=== PATIENT | female | born 1950 | race Caucasian/White ===

== ENCOUNTER → 2024-01-20 11:04 | Outpatient (BNVA) | payer MEDICARE, SELFPAY | PROVIDERS: PCP Clinical Nurse Specialist Adult Health; Visit Provider Nurse Practitioner Family | DX: R39.9 Unspecified symptoms and signs involving the genitourinary system (principal) | CPT/HCPCS: 81000 ==

== ENCOUNTER → 2024-03-10 08:51 | Outpatient (BNVA) | payer MEDICARE, SELFPAY | PROVIDERS: PCP Family Medicine; Visit Provider Family Medicine | DX: Z13.220 Encounter for screening for lipoid disorders (principal); E53.8 Deficiency of other specified B group vitamins; E78.5 Hyperlipidemia, unspecified; Z51.81 Encounter for therapeutic drug level monitoring; E55.9 Vitamin D deficiency, unspecified | CPT/HCPCS: 80053; 80061; 82306; 82607; 83036; 85025 ==

== ENCOUNTER 2024-03-24 08:27 | Outpatient (CLI) | payer MEDICARE, SELFPAY ==
--- NOTE | 2024-03-24 08:30 | MM_ITS ---
WS: [id number] BILATERAL 3D TOMOSYNTHESIS DIGITAL SCREENING MAMMOGRAPHY WITH CAD CLINICAL INFORMATION: Screening HISTORY: Screening mammogram. No current complaints. COMPARISON: None. TECHNIQUE: Bilateral CC and MLO views. FINDINGS: Scattered fibroglandular densities bilaterally. No suspicious focal mass, asymmetry, calcifications, or architectural distortion. No evidence of malignancy. A few incidental punctate calcifications. Int ramammary lymph node left axillary tail. Vascular calcification. MM/MM scr tomosynthesis [id number] IMPRESSION: DENSITY: There are scattered areas of fibroglandular density. BI-RADS: 2 - Benign. FOLLOW UP: 1 Year Follow-up Recommend return to annual screening mammography.
== END 2024-03-24 08:28 | disposition home or self-care (01) ==
LOC: RAD 08:29
PROVIDERS: PCP Clinical Nurse Specialist Adult Health; Visit Provider Family Medicine
DX: Z12.31 Encounter for screening mammogram for malignant neoplasm of breast (principal); R92.323 Mammographic fibroglandular density, bilateral breasts; R92.1 Mammographic calcification found on diagnostic imaging of breast
CPT/HCPCS: 77063; 77067

== ENCOUNTER 2024-04-07 07:34 | Outpatient (CLI) | payer MEDICARE, SELFPAY ==
--- NOTE | 2024-04-07 08:30 | USCV_ITS ---
Nichol Danielle Age: 74 Gender: F : 1950 Exam Date: 04/07/2024 08:26 Ordering Phys: Luis Fernando Calero MD Technologist: CT Exam Location: [facility] – [place] Indication: BP: 128 / 88 HR: 55 Rhythm: Sinus Technical Quality: Adequate MEASUREMENTS (Male / Female) Normal Values 2D ECHO LVOT Diameter 2.0 cm LV Ejection Fraction MOD 4C 65.5 % LV Ejection Fraction MOD 2C 43.7 % LV Ejection Fraction 2C AL 44.0 % LA Diameter 3.5 cm RA Systolic Volume 4C AL 58.6 ml RA Systolic Volume 4C MOD 55.5 ml LA Sys Volume AL 71.9 cm cubed LA Sys Volume Index AL 36.3 cm cubed/m squared Aorta at Sinotubular Diameter 2.5 cm IVC Diameter 1.7 cm M-MODE LA Ao Ratio MM 1.6 AV Cusp Separation MM 2.1 cm DOPPLER AV Peak Velocity 116.0 cm/s LVOT Peak Velocity 71.0 cm/s AV Area Cont Eq vti 2.4 cm squared AV Area Cont Eq pk 2.0 cm squared MV Peak Velocity 410.0 cm/s MV Area PHT 2.4 cm squared Mitral E to A Ratio 1.1 TV Peak Velocity 261.5 cm/s TR Peak Velocity 310.5 cm/s TR Peak Gradient 38.6 mmHg TR Mean Velocity 202.0 cm/s TR Mean Gradient 19.2 mmHg TR Velocity Time Integral 90.1 cm TV Peak E Velocity 76.0 cm/s PV Peak Velocity 84.0 cm/s FINDINGS Left Ventricle Left ventricle is normal in size. LV systolic function is normal with EF of 50-55%. No regional wall motion abnormalities seen. Right Ventricle Normal in size and function. Right Atrium Normal in size Left Atrium Normal in size. Mitral Valve Structurally normal mitral valve. Mild mitral regurgitation Aortic Valve Structurally normal aortic valve. No significant stenosis. Tricuspid Valve Mild tricuspid regurgitation. Insufficient TR jet to calculate RVSP. Pulmonic Valve Mild pulmonic regurgitation. Pericardium Trace pericardial effusion Aorta Normal in size IVC Appears to be normal CONCLUSIONS LV systolic function is normal with EF of 50 to 45%. Mild mitral regurgitation. Mild tricuspid regurgitation. Mild pulmonic regurgitation. Trace pericardial effusion. No comparison studies are available. Lamin Gandhi MD (Electronically Signed) Final Date: 07 April 2024 17:35 S
== END 2024-04-07 07:35 | disposition home or self-care (01) ==
LOC: RAD 07:35
PROVIDERS: PCP Family Medicine; Visit Provider Family Medicine
DX: I34.1 Nonrheumatic mitral (valve) prolapse (principal)
CPT/HCPCS: 93306

== ENCOUNTER → 2024-05-11 09:03 | Outpatient (BNVA) | payer MEDICARE, SELFPAY | PROVIDERS: PCP Family Medicine; Visit Provider Nurse Practitioner Family | DX: L82.1 Other seborrheic keratosis (principal); L81.4 Other melanin hyperpigmentation; D18.01 Hemangioma of skin and subcutaneous tissue; D48.5 Neoplasm of uncertain behavior of skin; L57.0 Actinic keratosis | CPT/HCPCS: 11104; 17000; 99203 ==

== ENCOUNTER 2024-10-13 20:00 | Emergency (ER) | payer MEDICARE, SELFPAY ==
[2024-10-13 20:17] VITALS: BP 140/73; PULSE 64; RESP 19; TEMP 36.7; O2SAT 96; BMI 30.7
--- NOTE | 2024-10-13 20:29 | ECG_ITS ---
[facility] Date: 2024-10-13 Pat Name: Nichol Danielle Department: Room: Gender: Female Aligner: : 1950 Requested By: Bing Solis Order Number: [id number] Vivien MD: Sonu Vicente M.D. Measurements Intervals [place] Rate: 57 P: 71 ND: 176 QRS: 104 QRSD: 94 T: 22 QT: 401 QTc: 393 Interpretive Statements SINUS BRADYCARDIA WITH OCCASIONAL VENTRICULAR PREMATURE COMPLEXES RIGHT AXIS DEVIATION [QRS AXIS > 100] LOW QRS VOLTAGE [QRS DEFLECTION < 0.5/1.0 mV IN LIMB/CHEST LEADS] No previous ECG available for comparison Electronically Signed On 10-14-2024 05:57:56 CDT by Sonu Vicente M.D. [email or web address]
[2024-10-13 20:41] VITALS: BP 137/72; PULSE 85; RESP 18; O2SAT 96
--- NOTE | 2024-10-13 20:49 | CTR_ITS ---
PROCEDURE INFORMATION: Exam: CT Lumbar Spine Without Contrast Exam date and time: 10/13/2024 9:01 PM Age: 74 years old Clinical indication: Injury or trauma; Fall; Blunt trauma (contusions or hematomas); Additional info: Low back pain TECHNIQUE: Imaging protocol: Computed tomography of the lumbar spine without contrast. Radiation optimization: All CT scans at this facility use at least one of these dose optimization techniques: automated exposure control; mA and/or kV adjustment per patient size (includes targeted exams where dose is matched to clinical indication); or iterative reconstruction. COMPARISON: CT pelvis wo con [id number] 10/13/2024 9:01 PM RADIATION DOSE METRICS: Total DLP (mGy-cm): 602.1 FINDINGS: Bones/joints: Xkwb-nv-yrgbfaix dextroscoliosis is seen on the coronal images. Lumbar vertebral body heights appear maintained. Spondylotic change noted involving lumbar vertebra and facets, along with degenerative disc disease throughout the lumbar spine with component of degenerative endplate changes. Minimal degenerative spondylolisthesis L1-L2 and L3-L4. No acute fracture or acute compression deformity is seen. Suggestion of multilevel disc bulges in conjunction with spondylotic change. Mild narrowing of the spinal canal multiple levels without severe spinal stenosis. Multiple levels of euny-ci-zxfbjzoa neural foraminal stenosis as well. Soft tissues: Unremarkable. CT/CT lumbar spine wo con* [id number] IMPRESSION: 1. No acute fracture or compression deformity. 2. Mhzq-rt-jwccfjvf dextroscoliosis. 3. Diffuse spondylotic change with diffuse degenerative disc disease throughout the lumbar spine as noted above.
--- NOTE | 2024-10-13 20:49 | CTR_ITS ---
PROCEDURE INFORMATION: Exam: CT Pelvis Without Contrast, Skeleton Exam date and time: 10/13/2024 9:01 PM Age: 74 years old Clinical indication: Pelvic pain; Additional info: Traumatic pelvic pain TECHNIQUE: Imaging protocol: Computed tomography of the pelvis without contrast. Exam focused on the skeleton. Radiation optimization: All CT scans at this facility use at least one of these dose optimization techniques: automated exposure control; mA and/or kV adjustment per patient size (includes targeted exams where dose is matched to clinical indication); or iterative reconstruction. COMPARISON: CT lumbar spine wo con* [id number] 10/13/2024 9:01 PM RADIATION DOSE METRICS: Total DLP (mGy-cm): 534.6 FINDINGS: Bones/joints: Pelvic ring and both hips are intact without evidence of acute fracture or malalignment. No significant hip joint effusion on either side. Soft tissues: Pelvic musculature is grossly intact. No fluid collection or hematoma. 3 cm intramuscular lipoma is noted involving the right gracilis muscle. CT/CT pelvis wo con [id number] IMPRESSION: 1. Pelvic ring is intact.
--- NOTE | 2024-10-13 20:49 | CTR_ITS ---
PROCEDURE INFORMATION: Exam: CT Head Without Contrast Exam date and time: 10/13/2024 8:58 PM Age: 74 years old Clinical indication: Injury or trauma; Fall; Blunt trauma (contusions or hematomas); Consciousness not specified; Additional info: Fall, head injury TECHNIQUE: Imaging protocol: Computed tomography of the head without contrast. Radiation optimization: All CT scans at this facility use at least one of these dose optimization techniques: automated exposure control; mA and/or kV adjustment per patient size (includes targeted exams where dose is matched to clinical indication); or iterative reconstruction. COMPARISON: No relevant prior studies available. RADIATION DOSE METRICS: Total DLP (mGy-cm): 1053.58 FINDINGS: Brain: No evidence of intra-axial or extra-axial hemorrhage. No mass effect or midline shift. Thurman-white differentiation is maintained. Basilar cisterns are patent. Cerebral ventricles: No hydrocephalus. Paranasal sinuses: The visualized paranasal sinuses are well aerated. Mastoid air cells: The visualized mastoids and middle ears are clear. Bones: Calvarium is intact. No evidence of acute fracture. Soft tissues: No gross soft tissue abnormality. CT/CT head wo con* [id number] IMPRESSION: 1. No acute intracranial abnormality.
[2024-10-13 21:21] LABS: Bacteria Urine None Seen /hpf; RBC Urine 0-2 /hpf (0-2); Squamous Epithelial Cell Urine 0-5 /hpf (0-5)
--- NOTE | 2024-10-13 21:41 | W.ED.FALL ---
HPI - Fall General: Chief Complaint: Fall Stated Complaint: fall, hit back of head dizzy nausea, back pain Time Seen by Provider: 10/13/24 20:41 History of Present Illness: 74-year-old woman with a history of dementia who presents the emergency room after a fall. She had stood up and lost her balance falling backwards. She hit the back of her head. She is having some low back and pelvic pain. No loss of consciousness. No altered mental status. No vomiting. Related Data Home Medications ?Medication ?Instructions ?Recorded ?Confirmed aspirin 81 mg tablet,delayed 81 mg PO DAILY 12/08/23 09/07/24 release (Adult Aspirin Regimen) calcium 600 mg-D3 20 mcg-magnesium tab PO 12/08/23 09/07/24 50 qm-Sc-ztbite-elvin-boron tablet (Calcium 600-D3 Plus (mag-zinc)) melatonin 3 mg capsule 3 mg PO DAILY 12/08/23 09/07/24 omega 5-tbn-kmh-fish oil 1,000 mg 1 cap PO DAILY 12/08/23 09/07/24 (120 mg-180 mg) capsule (Fish Oil) Previous Rx's ?Medication ?Instructions ?Recorded ferrous sulfate 325 mg (65 mg 325 mg PO BID #180 tabs 01/14/24 iron) tablet (FeroSul) RSV vaccine #1 ea 03/08/24 Auto-titrating CPAP with mask and #1 ea 03/11/24 supplies alendronate 70 mg tablet 70 mg PO Q7D #12 tabs 05/31/24 buspirone 15 mg tablet 7.5 mg (1/2 x 15 mg) PO BID PRN 05/31/24 anxiety #90 tabs donepezil 10 mg tablet 10 mg PO DAILY #90 tabs 05/31/24 atorvastatin 40 mg tablet 40 mg PO DAILY #90 tabs 06/07/24 azelastine 137 mcg (0.1 %) nasal 1 spray intranasal BID #30 mL 06/07/24 spray diltiazem HCl 120 mg 120 mg PO DAILY #90 caps 06/07/24 capsule,extended release 24 hr escitalopram oxalate 20 mg tablet 20 mg PO DAILY #90 tabs 06/07/24 gabapentin 300 mg capsule 300 mg PO DAILY #90 caps 06/07/24 doxycycline hyclate 100 mg capsule 100 mg PO BID #20 caps 07/22/24 Allergies Allergy/AdvReac Type Severity Reaction Status Date / Time morphine Allergy Intermediate itching Verified 10/13/24 20:23 Sulfa (Sulfonamide Allergy Intermediate ADR-rash Verified 10/13/24 20:23 Antibiotics) niacin AdvReac Intermediate flushing Verified 10/13/24 20:23 diphenhydramine AdvReac Unknown Verified 10/13/24 20:25 anticholinergics AdvReac Unknown Uncoded 10/13/24 20:24 typical antipsychotics AdvReac Unknown Uncoded 10/13/24 20:24 Review of Systems Narrative: Constitutional symptoms: Negative except as documented in HPI. Skin symptoms: Negative except as documented in HPI. Eye symptoms: Negative except as documented in HPI. ENMT symptoms: Negative except as documented in HPI. Respiratory symptoms: Negative except as documented in HPI. Cardiovascular symptoms: Negative except as documented in HPI. Gastrointestinal symptoms: Negative except as documented in HPI. Genitourinary symptoms: Negative except as documented in HPI. Musculoskeletal symptoms: Negative except as documented in HPI. Neurologic symptoms: Negative except as documented in HPI. Psychiatric symptoms: Negative except as documented in HPI. Endocrine symptoms: Negative except as documented in HPI. PFSH ED PFSH: Medical History Post-polio syndrome Essential hypertension Mitral valve prolapse last echo unknown-might be interested in cardiology Generalized osteoarthritis Hyperlipidemia Iron deficiency anemia Major depression Osteoporosis Lewy body dementia Memory specialist/neurologist Surgical History History of bilateral knee replacement Hx of arthroscopy of left knee Hx of arthroscopy of right knee Hx of ventral hernia repair Hx of section Hx of tonsillectomy Family History Grandmother Breast cancer Father Lung cancer Squamous cell Mother CAD (coronary artery disease) Other Dementia Diabetes Hypertension Pulmonary embolism Social History Smoking and tobacco/nicotine status: never used tobacco/nicotine Alcohol intake: current Alcohol intake frequency: holidays/special occasions only Substance/Drug Use: never Household members: spouse Marital status: 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 Skin: Warm, dry. Head: Normocephalic, atraumatic. Neck: Supple, trachea midline. Eye: Extraocular movements are intact. Ears, nose, mouth and throat: mucosa moist. Cardiovascular: Regular, Normal peripheral perfusion. Respiratory: Lungs are clear to auscultation, respirations are non-labored, breath sounds are equal, Symmetrical chest wall expansion. Gastrointestinal: Soft, Nontender, Non distended Musculoskeletal: Normal ROM, no deformity. Neurological: Alert and oriented, No focal neurological deficit observed. Psychiatric: Cooperative, appropriate mood & affect. Course Vital Signs: Vital signs: Vital Signs Temperature 98.1 F 10/13/24 20:17 Pulse Rate 85 10/13/24 20:41 Respiratory Rate 18 10/13/24 20:41 Blood Pressure 137/72 10/13/24 20:41 Pulse Oximetry 96 10/13/24 20:41 Oxygen Delivery Me thod Room Air 10/13/24 20:41 MDM - Fall Medical Decision Making Medical decision making: Differential diagnosis including but not limited to and based on the above HPI, review of systems and physical exam: patient with fall and head injury. Subdural hematoma, subarachnoid hemorrhage, concussion, skull fracture. Orders placed to evaluate differential diagnosis based on the above differential, HPI and physical exam CT scan of the head was ordered. Also concern for fracture of the lumbar spine or pelvis with pain after a fall. CT head: No acute intracranial process. no intracranial hemorrhage, no evidence of infarct. no evidence of acute fracture.This was reviewed and interpreted by myself the ER physician. CT of the lumbar spine: No fracture. Good alignment. No step-offs. This was reviewed and interpreted by myself the emergency room physician. CT of the pelvis: No acute fractures. This was reviewed and interpreted by myself the emergency room physician. I also reviewed the radiology report. I reviewed the patient's medical record. Assessment and plan: Fall, head injury - Discharged home - Discussed plan with patient. Answered any questions. - Evaluation and treatment of this problem were appropriate in the emergency setting. Lab Data Radiology Impressions Head CT 10/13/24 20:49 IMPRESSION: 1. No acute intracranial abnormality. Lumbar Spine CT 10/13/24 20:49 IMPRESSION: 1. No acute fracture or compression deformity. 2. Vlsx-cb-yjmzceam dextroscoliosis. 3. Diffuse spondylotic change with diffuse degenerative disc disease throughout the lumbar spine as noted above. Pelvis CT 10/13/24 20:49 IMPRESSION: 1. Pelvic ring is intact. Laboratory Results Urine RBC 0-2 /hpf (0-2) 10/13/24 20:17 Urine WBC 6-10 /hpf (0-5) 10/13/24 20:17 Ur Squamous Epith Cells 0-5 /hpf (0-5) 10/13/24 20:17 Amorphous Sediment Not Reportable 10/13/24 20:17 Urine Bacteria None seen /hpf (NONE) 10/13/24 20:17 Hyaline Casts 0.40 /lpf 10/13/24 20:17 All radiology interpretation(s) finalized by discharge Discharge Plan Discharge Patient Disposition: Home Clinical Impression: Fall, Head injury, Low back pain Condition: Stable Prescriptions: No Action aspirin [Adult Aspirin Regimen] 81 mg tablet,delayed release (DR/EC) 81 mg PO DAILY melatonin 3 mg capsule 3 mg PO DAILY Ca-D3-mag wq-rvdl-wzs-donna-bor [Calcium 600-D3 Plus (mag-zinc)] 600 mg calcium- 20 mcg-50 mg tablet PO omega 4-sre-pqv-fish oil [Fish Oil] 1,000 mg (120 mg-180 mg) capsule 1 cap PO DAILY atorvastatin 40 mg tablet 40 mg PO DAILY Qty: 90 3RF azelastine 137 mcg (0.1 %) spray,non-aerosol 1 spray intranasal BID Qty: 30 3RF Rx Instructions: administer into each nostril diltiazem HCl 120 mg capsule,extended release 24hr 120 mg PO DAILY Qty: 90 3RF escitalopram oxalate 20 mg tablet 20 mg PO DAILY Qty: 90 3RF gabapentin 300 mg capsule 300 mg PO DAILY Qty: 90 3RF doxycycline hyclate 100 mg capsule 100 mg PO BID Qty: 20 0RF (DME) RSV vaccine See Rx Instructions .ROUTE .MEDSUPPLY Qty: 1 0RF Rx Instructions: Give one dose IM per guidelines. (DME) Auto-titrating CPAP with mask and supplies See Rx Instructions .ROUTE .MEDSUPPLY Qty: 1 0RF Rx Instructions: Use while sleeping at least 4 hours per day. Settings: 8-15 cm H2O ferrous sulfate [FeroSul] 325 mg (65 mg iron) tablet 325 mg PO BID Qty: 180 0RF alendronate 70 mg tablet 70 mg PO Q7D Qty: 12 3RF buspirone 15 mg tablet 7.5 mg PO BID PRN (Reason: anxiety) Qty: 90 3RF donepezil 10 mg tablet 10 mg PO DAILY Qty: 90 3RF Discharge Orders: Discharge ED (Routine); Ordered 10/13/24 Ordered By: Bing Sanchez Referrals: Luis Fernando Calero MD [Primary Care Provider, Family Practice] Discharge Diet: Usual diet Discharge Activity: Increase activity as tolerated Patient Instructions: Fall Prevention for Older Adults (ED), Opioid Safety, Pain Management Activity Restrictions/Additional Instructions: Thank you for choosing [facility] for your healthcare needs today. You have been screened and evaluated and felt safe for discharge. Health conditions do change or evolve sometimes and as such it is important that you follow up with your Primary Doctor to be re checked, 3-5 days is a general good time frame for follow up. You are always welcome to return to the ED for re assessment if your symptoms are worsening or you have new concerns Print Language: Luxembourgish Coding Level of Care Code ED Community Chest Officer for Deloris Muñoz
[2024-10-13 21:52] LABS: Bilirubin Urine Negative (Negative); Blood Urine Negative (Negative); Glucose Urine UA Negative (Normal); Ketones Urine Trace (Negative); Leukocyte Esterase Urine Trace (Negative); Nitrate Urine Negative (Negative); Protein Urine Negative (Negative); Specific Gravity, Urine 1.027 (1.005-1.030); Urine Appearance Clear (CLEAR); Urine Color Yellow (Yellow); pH Urine 5.5 (5-7)
[2024-10-13 22:13] VITALS: BP 154/83; PULSE 86; RESP 16; O2SAT 97
== END 2024-10-13 22:14 | disposition home or self-care (01) ==
PROVIDERS: Emergency Provider Emergency Medicine; PCP Family Medicine
DX: S09.90XA Unspecified injury of head, initial encounter (principal); W19.XXXA Unspecified fall, initial encounter; M54.50 Low back pain, unspecified; Z79.82 Long term (current) use of aspirin; E78.5 Hyperlipidemia, unspecified
CPT/HCPCS: 70450; 72131; 72192; 81001; 93005; 99284

== ENCOUNTER 2024-11-08 11:47 | Outpatient (RCR) | payer MEDICARE, SELFPAY | END 2024-11-25 23:59 | disposition home or self-care (01) | LOC: SPT 11:47 | PROVIDERS: PCP Family Medicine; Visit Provider Family Medicine | DX: L82.1 Other seborrheic keratosis (principal); L81.4 Other melanin hyperpigmentation; D18.01 Hemangioma of skin and subcutaneous tissue; D48.5 Neoplasm of uncertain behavior of skin; L57.0 Actinic keratosis; R26.81 Unsteadiness on feet | CPT/HCPCS: 11102; 17000; 97110; 97112; 97116; 97162; 97530; 99213 ==

== ENCOUNTER 2024-11-26 05:00 | Outpatient (RCR) | payer MEDICARE, SELFPAY | END 2024-12-23 10:32 | disposition home or self-care (01) | LOC: SPT 05:00 | PROVIDERS: PCP Family Medicine; Visit Provider Family Medicine | DX: R26.81 Unsteadiness on feet (principal); L82.1 Other seborrheic keratosis; L81.4 Other melanin hyperpigmentation; D18.01 Hemangioma of skin and subcutaneous tissue; D48.5 Neoplasm of uncertain behavior of skin; L57.0 Actinic keratosis | CPT/HCPCS: 11603; 13121; 97110; 97112; 97116; 97530 ==

== ENCOUNTER → 2024-12-07 11:01 | Outpatient (BNVA) | payer MEDICARE, SELFPAY | PROVIDERS: PCP Family Medicine; Visit Provider Family Medicine | DX: Z13.6 Encounter for screening for cardiovascular disorders (principal); E55.9 Vitamin D deficiency, unspecified; R53.81 Other malaise; R53.83 Other fatigue; E53.8 Deficiency of other specified B group vitamins | CPT/HCPCS: 80053; 80061; 82306; 82607; 84439; 84443; 85025 ==

== ENCOUNTER 2025-02-04 20:53 | Emergency (ER) | payer MEDICARE, OTHER, SELFPAY ==
[2025-02-04 21:26] VITALS: BP 149/88; PULSE 79; RESP 17; TEMP 36.7; O2SAT 98
--- NOTE | 2025-02-04 21:35 | XRR_ITS ---
PROCEDURE INFORMATION: Exam: XR Left Forearm Exam date and time: 02/04/2025 10:12 PM Age: 75 years old Clinical indication: Injury or trauma; Fall; Blunt trauma (contusions or hematomas); Arm, lower; Left TECHNIQUE: Imaging protocol: Radiologic exam of the left forearm. Views: 2 views. COMPARISON: No relevant prior studies available. FINDINGS: Bones/joints: Normal. Soft tissues: Normal. XR/XR forearm LT 2V [id number] IMPRESSION: No acute findings.
[2025-02-04 22:25] VITALS: BP 156/86; PULSE 78; RESP 17; O2SAT 97
[2025-02-05 00:03] VITALS: PULSE 86; RESP 16; O2SAT 98
--- NOTE | 2025-02-05 01:00 | W.ED.EXTPRO ---
Documented by User: CARMEN Ch 02/05/25 01:02 HPI - Extremity Problem General: Chief complaint: Extremity Injury, Upper Stated complaint: Stumbled down stairs and hurt LT arm Time Seen by Provider: 02/04/25 22:17 Source: patient and family Mode of arrival: ambulatory Limitations: no limitations History of Present Illness: The patient is a 75-year-old female who presents to the emergency department after a fall. Daughter is primary historian, as patient has history of Lewy body dementia. Daughter states that she slipped while walking upstairs landing on her left forearm. Patient does not have any complaints but daughter states she noticed that the patient's left forearm was swollen. She thinks that she fell directly onto the arm, not a FOOSH injury. No other injuries are reported. Patient noted to be using the arm without difficulty at time of examination. She did not hit her head. MD Complaint: extremity pain and extremity swelling Onset (ago): hour(s) Pain Consistency: constant Location: left and upper extremity Associated symptoms: Deny chest pain, fever(s) or rash Related Data Home Medications ?Medication ?Instructions ?Recorded ?Confirmed aspirin 81 mg tablet,delayed 81 mg PO DAILY 12/08/23 01/06/25 release (Adult Aspirin Regimen) calcium 600 mg-D3 20 mcg-magnesium tab PO 12/08/23 01/06/25 50 zw-Sb-llpizq-elvin-boron tablet (Calcium 600-D3 Plus (mag-zinc)) melatonin 3 mg capsule 3 mg PO DAILY 12/08/23 01/06/25 omega 5-nzo-ucq-fish oil 1,000 mg 1 cap PO DAILY 12/08/23 01/06/25 (120 mg-180 mg) capsule (Fish Oil) Previous Rx's ?Medication ?Instructions ?Recorded ferrous sulfate 325 mg (65 mg 325 mg PO BID #180 tabs 01/14/24 iron) tablet (FeroSul) RSV vaccine #1 ea 03/08/24 alendronate 70 mg tablet 70 mg PO Q7D #12 tabs 05/31/24 buspirone 15 mg tablet 7.5 mg (1/2 x 15 mg) PO BID PRN 05/31/24 anxiety #90 tabs donepezil 10 mg tablet 10 mg PO DAILY #90 tabs 05/31/24 atorvastatin 40 mg tablet 40 mg PO DAILY #90 tabs 06/07/24 azelastine 137 mcg (0.1 %) nasal 1 spray intranasal BID #30 mL 06/07/24 spray escitalopram oxalate 20 mg tablet 20 mg PO DAILY #90 tabs 06/07/24 gabapentin 300 mg capsule 300 mg PO DAILY #90 caps 06/07/24 doxycycline hyclate 100 mg capsule 100 mg PO BID #20 caps 07/22/24 triamcinolone acetonide 0.5 % 1 applic topical QDAY #15 grams 10/18/24 topical cream Quad Cane #1 ea 11/01/24 levothyroxine 50 mcg tablet 50 mcg PO DAILY #30 tabs 12/24/24 (Synthroid) COVID vaccine #1 ea 01/14/25 diltiazem HCl 120 mg 120 mg PO DAILY #90 caps 01/28/25 capsule,extended release 24 hr Auto-titrating CPAP with mask and #1 ea 02/01/25 supplies Allergies Allergy/AdvReac Type Severity Reaction Status Date / Time morphine Allergy Intermediate itching Verified 02/04/25 21:31 Sulfa (Sulfonamide Allergy Intermediate ADR-rash Verified 02/04/25 21:31 Antibiotics) niacin AdvReac Intermediate flushing Verified 02/04/25 21:31 diphenhydramine AdvReac Unknown Verified 02/04/25 21:31 anticholinergics AdvReac Unknown Uncoded 02/04/25 21:31 typical antipsychotics AdvReac Unknown Uncoded 02/04/25 21:31 Review of Systems General: Reports: 10 or more systems reviewed and unremarkable except in HPI and below Const: Denies: fever(s) or chills Card: Denies: chest pain Resp: Denies: dyspnea or productive cough GI: Denies: abdominal pain, nausea, vomiting or diarrhea : Denies: flank pain Musc: Reports: extremity pain and extremity swelling; Denies: neck pain, back pain, joint pain, joint swelling, joint redness, joint warmth, limited range of motion or muscle weakness Skin/Breast: Denies: rash Neuro: Denies: headache(s), numbness in extremities or weakness in extremities PFSH ED PFSH: Medical History Post-polio syndrome Essential hypertension Mitral valve prolapse last echo unknown-might be interested in cardiology Generalized osteoarthritis Hyperlipidemia Iron deficiency anemia Major depression Osteoporosis Lewy body dementia Memory specialist/neurologist Surgical History History of bilateral knee replacement Hx of arthroscopy of left knee Hx of arthroscopy of right knee Hx of ventral hernia repair Hx of section Hx of tonsillectomy Family History Grandmother Breast cancer Father Lung cancer Squamous cell Mother CAD (coronary artery disease) Other Dementia Diabetes Hypertension Pulmonary embolism Social History Smoking and tobacco/nicotine status: never used tobacco/nicotine Alcohol intake: current Alcohol intake frequency: holidays/special occasions only Substance/Drug Use: never Household members: spouse Marital status: 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 Physical Exam Const: COMMON NORMALS: no acute distress, no limitations, healthy appearing, alert and well nourished OTHER: At baseline mentation, per daughter HENMT: COMMON NORMALS: normocephalic and atraumatic HEAD & SCALP: normocephalic and atraumatic Neck/C-Spine: COMMON NORMALS: full ROM, supple and no meningeal signs Resp: COMMON NORMALS: normal respiratory effort, No use of accessory muscles and clear to auscultation bilaterally AUSCULTATION: clear to auscultation bilaterally Cardio: COMMON NORMALS: regular rate and regular rhythm RATE: regular rate RHYTHM: regular rhythm Extremity: COMMON NORMALS: full ROM and capillary refill normal NARRATIVE EXTREMITY EXAM: Small amount of swelling noted to left distal forearm, mild tenderness to palpation. Distal neurovascular exams intact. Good strength intact. Neuro: COMMON NORMALS: moves all extremities, no focal motor deficits and no sensory deficits noted SENSORIUM/ORIENTATION: Yes alert MENINGEAL SIGNS: Yes no meningeal signs Skin: COMMON NORMALS: no rashes or lesions noted GENERAL SKIN EXAM: no rashes or lesions noted Course Vital Signs: Vital signs: Vital Signs Temperature 98.0 F 02/04/25 21:26 Pulse Rate 86 02/05/25 00:03 Respiratory Rate 16 02/05/25 00:03 Blood Pressure 156/86 02/04/25 22:25 Pulse Oximetry 98 02/05/25 00:03 Oxygen Delivery Me thod Room Air 02/04/25 22:25 MDM - Extremity (Nontraumatic) Medical Decision Making Patient brought in by daughter after a fall, concerns of left forearm injury as she fell directly onto it. No other injuries noted, specifically no other head injury. History of Lewy body dementia. Exam positive for swelling and tender to palpation to left distal forearm however x-ray does not show any acute findings. Patient is stable for discharge home with conservative measures discussed, diagnosed with hematoma. Lab Data Radiology Impressions Forearm X-Ray 02/04/25 21:35 IMPRESSION: No acute findings. All radiology interpretation(s) finalized by discharge Discharge Plan Discharge Patient Disposition: Home Clinical Impression: Hematoma of left forearm Fall Qualifiers: Encounter type: initial encounter Qualified Code(s): W19.XXXA - Unspecified fall, initial encounter Condition: Stable Prescriptions: No Action aspirin [Adult Aspirin Regimen] 81 mg tablet,delayed release (DR/EC) 81 mg PO DAILY melatonin 3 mg capsule 3 mg PO DAILY Ca-D3-mag ua-mskv-zwv-donna-bor [Calcium 600-D3 Plus (mag-zinc)] 600 mg calcium- 20 mcg-50 mg tablet PO omega 0-drv-gmb-fish oil [Fish Oil] 1,000 mg (120 mg-180 mg) capsule 1 cap PO DAILY atorvastatin 40 mg tablet 40 mg PO DAILY Qty: 90 3RF azelastine 137 mcg (0.1 %) spray,non-aerosol 1 spray intranasal BID Qty: 30 3RF Rx Instructions: administer into each nostril escitalopram oxalate 20 mg tablet 20 mg PO DAILY Qty: 90 3RF gabapentin 300 mg capsule 300 mg PO DAILY Qty: 90 3RF doxycycline hyclate 100 mg capsule 100 mg PO BID Qty: 20 0RF triamcinolone acetonide 0.5 % cream 1 applic topical QDAY Qty: 15 6RF (DME) RSV vaccine See Rx Instructions .ROUTE .MEDSUPPLY Qty: 1 0RF Rx Instructions: Give one dose IM per guidelines. ferrous sulfate [FeroSul] 325 mg (65 mg iron) tablet 325 mg PO BID Qty: 180 0RF alendronate 70 mg tablet 70 mg PO Q7D Qty: 12 3RF buspirone 15 mg tablet 7.5 mg PO BID PRN (Reason: anxiety) Qty: 90 3RF donepezil 10 mg tablet 10 mg PO DAILY Qty: 90 3RF (DME) Quad Cane See Rx Instructions .Route .MEDSUPPLY Qty: 1 0RF Rx Instructions: As directed levothyroxine [Synthroid] 50 mcg tablet 50 mcg PO DAILY Qty: 30 3RF (DME) COVID vaccine See Rx Instructions .ROUTE .MEDSUPPLY Qty: 1 0RF Rx Instructions: Give 1 dose IM per guidelines diltiazem HCl 120 mg capsule,extended release 24hr 120 mg PO DAILY Qty: 90 3RF (DME) Auto-titrating CPAP with mask and supplies See Rx Instructions .ROUTE .MEDSUPPLY Qty: 1 0RF Rx Instructions: Use while sleeping at least 4 hours per day. Settings: 8-15 cm H2O Discharge Orders: Discharge ED (Routine); Ordered 02/04/25 Ordered By: Luis Alberto Ballesteros Referrals: Luis Fernando Calero MD [Primary Care Provider, [facility]] Patient Instructions: Patient Portal & Madi Instructions Activity Restrictions/Additional Instructions: Forearm Hematoma Discharge You have a bruise (hematoma) on your left forearm from a fall. There is no broken bone. Please follow these instructions to help your arm heal and to prevent future falls: - Care for your arm: Rest your arm and avoid heavy lifting or strenuous activity until the swelling and pain improve. You may use ice packs (wrapped in a towel) on the area for 20 minutes at a time, several times a day, for the first 48 hours. Keep your arm elevated on pillows when sitting or lying down to help reduce swelling. - Pain control: You may take acetaminophen (Tylenol) for pain as needed. Avoid medications like ibuprofen or aspirin unless directed by your doctor, especially if you are on blood thinners. - Watch for problems: Call your doctor or go to the emergency room if you notice: - Increased pain, swelling, or redness - Numbness or tingling in your hand or fingers - Trouble moving your fingers or hand - Skin changes (blisters, color changes) - Signs of infection (fever, pus) - Prevent future falls: Make your home safer by removing loose rugs, improving lighting, and using handrails. If you feel unsteady, ask about physical therapy or assistive devices like a cane or walker. - Medication review: If you take blood thinners or medicines that affect bleeding, make sure your doctor knows. These can increase your risk of bleeding even with minor injuries. - Daily activities: Try to stay active and do your usual daily tasks as much as you are able. If you have trouble getting out of bed, dressing, bathing, or making meals, let your doctor know. You may benefit from extra help or therapy. - Follow-up: Schedule a follow-up appointment as directed. Your doctor may want to check your arm and review your medications. If you have any questions or concerns, contact your healthcare provider. Print Language: Citizen Of [place] Coding Level of Care Code ED Mortgage Analyst for [employer] Fwd Documented by User: Yogi Rick, 02/05/25 03:44 HPI - Extremity Problem General: Chief complaint: Extremity Injury, Upper Stated complaint: Stumbled down stairs and hurt LT arm Time Seen by Provider: 02/04/25 22:17 Related Data Home Medications ?Medication ?Instructions ?Recorded ?Confirmed aspirin 81 mg tablet,delayed 81 mg PO DAILY 12/08/23 01/06/25 release (Adult Aspirin Regimen) calcium 600 mg-D3 20 mcg-magnesium tab PO 12/08/23 01/06/25 50 hh-Iu-muvqse-elvin-boron tablet (Calcium 600-D3 Plus (mag-zinc)) melatonin 3 mg capsule 3 mg PO DAILY 12/08/23 01/06/25 omega 7-ndq-upy-fish oil 1,000 mg 1 cap PO DAILY 12/08/23 01/06/25 (120 mg-180 mg) capsule (Fish Oil) Previous Rx's ?Medication ?Instructions ?Recorded ferrous sulfate 325 mg (65 mg 325 mg PO BID #180 tabs 01/14/24 iron) tablet (FeroSul) RSV vaccine #1 ea 03/08/24 alendronate 70 mg tablet 70 mg PO Q7D #12 tabs 05/31/24 buspirone 15 mg tablet 7.5 mg (1/2 x 15 mg) PO BID PRN 05/31/24 anxiety #90 tabs donepezil 10 mg tablet 10 mg PO DAILY #90 tabs 05/31/24 atorvastatin 40 mg tablet 40 mg PO DAILY #90 tabs 06/07/24 azelastine 137 mcg (0.1 %) nasal 1 spray intranasal BID #30 mL 06/07/24 spray escitalopram oxalate 20 mg tablet 20 mg PO DAILY #90 tabs 06/07/24 gabapentin 300 mg capsule 300 mg PO DAILY #90 caps 06/07/24 doxycycline hyclate 100 mg capsule 100 mg PO BID #20 caps 07/22/24 triamcinolone acetonide 0.5 % 1 applic topical QDAY #15 grams 10/18/24 topical cream Quad Cane #1 ea 11/01/24 levothyroxine 50 mcg tablet 50 mcg PO DAILY #30 tabs 12/24/24 (Synthroid) COVID vaccine #1 ea 01/14/25 diltiazem HCl 120 mg 120 mg PO DAILY #90 caps 01/28/25 capsule,extended release 24 hr Auto-titrating CPAP with mask and #1 ea 02/01/25 supplies Allergies Allergy/AdvReac Type Severity Reaction Status Date / Time morphine Allergy Intermediate itching Verified 02/04/25 21:31 Sulfa (Sulfonamide Allergy Intermediate ADR-rash Verified 02/04/25 21:31 Antibiotics) niacin AdvReac Intermediate flushing Verified 02/04/25 21:31 diphenhydramine AdvReac Unknown Verified 02/04/25 21:31 anticholinergics AdvReac Unknown Uncoded 02/04/25 21:31 typical antipsychotics AdvReac Unknown Uncoded 02/04/25 21:31 PFSH ED PFSH: Medical History Post-polio syndrome Essential hypertension Mitral valve prolapse last echo unknown-might be interested in cardiology Generalized osteoarthritis Hyperlipidemia Iron deficiency anemia Major depression Osteoporosis Lewy body dementia Memory specialist/neurologist Surgical History History of bilateral knee replacement Hx of arthroscopy of left knee Hx of arthroscopy of right knee Hx of ventral hernia repair Hx of section Hx of tonsillectomy Family History Grandmother Breast cancer Father Lung cancer Squamous cell Mother CAD (coronary artery disease) Other Dementia Diabetes Hypertension Pulmonary embolism Social History Smoking and tobacco/nicotine status: never used tobacco/nicotine Alcohol intake: current Alcohol intake frequency: holidays/special occasions only Substance/Drug Use: never Household members: spouse Marital status: 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 No other injuries noted, specifically no other head injury. History of Lewy body dementia. Exam positive for swelling and tender to palpation to left distal forearm however x-ray does not show any acute findings. Patient is stable for discharge home with conservative measures discussed, diagnosed with hematoma. This patient was originally seen by Mr. Favian PA-C. I agree with his history, evaluation, and treatment. Lab Data Radiology Impressions Forearm X-Ray 02/04/25 21:35 IMPRESSION: No acute findings. Discharge Plan Discharge Patient Disposition: Home Clinical Impression: Hematoma of left forearm Fall Qualifiers: Encounter type: initial encounter Qualified Code(s): W19.XXXA - Unspecified fall, initial encounter Condition: Stable Prescriptions: No Action aspirin [Adult Aspirin Regimen] 81 mg tablet,delayed release (DR/EC) 81 mg PO DAILY melatonin 3 mg capsule 3 mg PO DAILY Ca-D3-mag of-edtd-kpm-donna-bor [Calcium 600-D3 Plus (mag-zinc)] 600 mg calcium- 20 mcg-50 mg tablet PO omega 0-qpb-akv-fish oil [Fish Oil] 1,000 mg (120 mg-180 mg) capsule 1 cap PO DAILY atorvastatin 40 mg tablet 40 mg PO DAILY Qty: 90 3RF azelastine 137 mcg (0.1 %) spray,non-aerosol 1 spray intranasal BID Qty: 30 3RF Rx Instructions: administer into each nostril escitalopram oxalate 20 mg tablet 20 mg PO DAILY Qty: 90 3RF gabapentin 300 mg capsule 300 mg PO DAILY Qty: 90 3RF doxycycline hyclate 100 mg capsule 100 mg PO BID Qty: 20 0RF triamcinolone acetonide 0.5 % cream 1 applic topical QDAY Qty: 15 6RF (DME) RSV vaccine See Rx Instructions .ROUTE .MEDSUPPLY Qty: 1 0RF Rx Instructions: Give one dose IM per guidelines. ferrous sulfate [FeroSul] 325 mg (65 mg iron) tablet 325 mg PO BID Qty: 180 0RF alendronate 70 mg tablet 70 mg PO Q7D Qty: 12 3RF buspirone 15 mg tablet 7.5 mg PO BID PRN (Reason: anxiety) Qty: 90 3RF donepezil 10 mg tablet 10 mg PO DAILY Qty: 90 3RF (DME) Quad Cane See Rx Instructions .Route .MEDSUPPLY Qty: 1 0RF Rx Instructions: As directed levothyroxine [Synthroid] 50 mcg tablet 50 mcg PO DAILY Qty: 30 3RF (DME) COVID vaccine See Rx Instructions .ROUTE .MEDSUPPLY Qty: 1 0RF Rx Instructions: Give 1 dose IM per guidelines diltiazem HCl 120 mg capsule,extended release 24hr 120 mg PO DAILY Qty: 90 3RF (DME) Auto-titrating CPAP with mask and supplies See Rx Instructions .ROUTE .MEDSUPPLY Qty: 1 0RF Rx Instructions: Use while sleeping at least 4 hours per day. Settings: 8-15 cm H2O Discharge Orders: Discharge ED (Routine); Ordered 02/04/25 Ordered By: Luis Alberto Ballesteros Referrals: Luis Fernando Calero MD [Primary Care Provider, Family Practice] Patient Instructions: Patient Portal & Madi Instructions Activity Restrictions/Additional Instructions: Forearm Hematoma Discharge You have a bruise (hematoma) on your left forearm from a fall. There is no broken bone. Please follow these instructions to help your arm heal and to prevent future falls: - Care for your arm: Rest your arm and avoid heavy lifting or strenuous activity until the swelling and pain improve. You may use ice packs (wrapped in a towel) on the area for 20 minutes at a time, several times a day, for the first 48 hours. Keep your arm elevated on pillows when sitting or lying down to help reduce swelling. - Pain control: You may take acetaminophen (Tylenol) for pain as needed. Avoid medications like ibuprofen or aspirin unless directed by your doctor, especially if you are on blood thinners. - Watch for problems: Call your doctor or go to the emergency room if you notice: - Increased pain, swelling, or redness - Numbness or tingling in your hand or fingers - Trouble moving your fingers or hand - Skin changes (blisters, color changes) - Signs of infection (fever, pus) - Prevent future falls: Make your home safer by removing loose rugs, improving lighting, and using handrails. If you feel unsteady, ask about physical therapy or assistive devices like a cane or walker. - Medication review: If you take blood thinners or medicines that affect bleeding, make sure your doctor knows. These can increase your risk of bleeding even with minor injuries. - Daily activities: Try to stay active and do your usual daily tasks as much as you are able. If you have trouble getting out of bed, dressing, bathing, or making meals, let your doctor know. You may benefit from extra help or therapy. - Follow-up: Schedule a follow-up appointment as directed. Your doctor may want to check your arm and review your medications. If you have any questions or concerns, contact your healthcare provider. Print Language: Citizen Of [place] Coding Level of Care Code ED Mortgage Analyst for Deloris Muñoz
== END 2025-02-05 00:05 | disposition home or self-care (01) ==
PROVIDERS: Emergency Provider Physician Assistant; PCP Family Medicine
DX: S50.12XA Contusion of left forearm, initial encounter (principal); Z79.82 Long term (current) use of aspirin; E78.5 Hyperlipidemia, unspecified; W01.0XXA Fall on same level from slipping, tripping and stumbling without subsequent striking against object, initial encounter
CPT/HCPCS: 73090; 99283

== ENCOUNTER → 2025-03-23 15:32 | Outpatient (BNVA) | payer MEDICARE, OTHER, SELFPAY | PROVIDERS: PCP Family Medicine; Visit Provider Family Medicine | DX: R30.0 Dysuria (principal); N39.0 Urinary tract infection, site not specified | CPT/HCPCS: 81000; 87086 ==

== ENCOUNTER 2025-04-15 10:51 | Outpatient (CLI) | payer MEDICARE, OTHER, SELFPAY ==
--- NOTE | 2025-04-15 10:55 | MM_ITS ---
WS: [id number] BILATERAL 3D TOMOSYNTHESIS DIGITAL SCREENING MAMMOGRAPHY WITH CAD CLINICAL INFORMATION: SCREENING HISTORY: Screening mammogram. No current complaints. COMPARISON: 2023 TECHNIQUE: Bilateral CC and MLO views. FINDINGS: Scattered fibroglandular densities bilaterally. No suspicious focal mass, asymmetry, calcifications, or architectural distortion. No evidence of malignancy. A few incidental punctate calcifications. MM/MM scr tomosynthesis [id number] IMPRESSION: DENSITY: There are scattered areas of fibroglandular density. BI-RADS: 2 - Benign. FOLLOW UP: 1 Year Follow-up Recommend return to annual screening mammography.
== END 2025-04-15 10:52 | disposition home or self-care (01) ==
LOC: RAD 10:52
PROVIDERS: PCP Family Medicine; Visit Provider Family Medicine
DX: Z12.31 Encounter for screening mammogram for malignant neoplasm of breast (principal); R92.323 Mammographic fibroglandular density, bilateral breasts; R92.1 Mammographic calcification found on diagnostic imaging of breast
CPT/HCPCS: 77063; 77067